=== PATIENT | male | born 1945 | race Caucasian/White ===

== ENCOUNTER 2019-04-25 11:56 | Outpatient (CLI) | payer MEDICARE ==
[~2019-04-25] VITALS: Ht 170.2 cm; Wt 90.9 kg
--- NOTE | ~2019-04-25 | HEMODYNAMI ---
PATIENT:HARI TAFOYA JR MEDICAL RECORD: [id number] : 41 LOCATION:[facility] ADMISSION DATE: 04/25/19 Generatedon:04/25/201916:12 Patient name: HARI TAFOYA Patient #: [id number] SSN: [id number] : 1945 Date of study: 04/25/2019 Page: Of Hemodynamic Procedure Report Patient Data Patient Demographics Procedure consent was obtained First Name: HARI Gender: Male Last Name: MICHELET Suffix: Jr Duvall Initial: MAGAN : 1945 Patient #: [id number] Age: 73 year(s) Race: SSN: [id number] Additional ID: [id number] Contact details [address]: [address] [place] [address] State: [place] City: [place] Zip code: [address] Past Medical History Performed procedures and imaging results Date Procedure Procedure Results Comments 04/19/2019 Stress testing Positive->Intermediate with SPECT MPI risk Allergies Allergen Reaction Date Comments Reported Other allergy 04/25/2019 pollen extracts Admission Admission Data Admission Date: 04/25/2019 Admission Time: 11:56 Arrival Date: 04/25/2019 Arrival Time: 0:00 Admit Source: Other Insurance Payor: Medicare [facility] #: [id number] Height (in.): 66.93 BSA: 2.02 (m2) Height (cm.): 170 BMI: 31.49 (kg/m2) Weight (lbs.): 200.62 Weight (kg.): 91 Lab Results Lab Result Date: 04/25/2019 Lab Result Time: 0:00 Biochemistry Name Units Result Min Max BUN mg/dl 21 --(----)-* 7 18 Creatinine mg/dl 1.1 --(--*-)-- 0.6 1.3 eGFR ml/min 69 *-(----)-- 90 120 NONAFRICAN CBC Name Units Result Min Max Hematocrit % 42.4 --(*---)-- 42 54 Hemoglobin g/dl 14.3 --(*---)-- 13.5 17.5 Procedure Procedure Types Cath Procedure Diagnostic Procedure [facility] w/Coronaries Sedation Charges Moderate Sedation up to 15 minutes Procedure Description Procedure Date Procedure Date: 04/25/2019 Procedure Start Time: 15:58 Procedure End Time: 16:09 Procedure Staff Name Function Bharathi Dowd MD Performing Physician Angel Stauffer RN Nurse Aissatou Spivey RT Monitor Ellen Givens RT Scrub [facility] RT Monitor Indication Abnormal ECG Procedure Data Cath Procedure Fluoroscopy Diagnostic fluoroscopy Total fluoroscopy Time: 2.4 time: 2.4 min min Diagnostic fluoroscopy Total fluoroscopy dose: dose: 323.74 mGy 323.74 mGy Contrast Material Contrast Material Type Amount (ml) Isovue 300 57 Entry Location Entry Primary Successful Side Size Upsize Upsize Entry Closure Lopez ccessful Closure Location (Fr) 1 (Fr) 2 (Fr) Remarks Device Remarks Radial Right 6 Fr Mechanical artery Short Compression Estimated blood loss: 5 ml Diagnostic catheters Device Type Used For End Catheter Placement DIAGNOSTIC Roberto 110cm Procedure 5Fr catheter ([id number]) Procedure Complications No complications Procedure Medications Medication Administration Route Dosage Oxygen etCO2 Nasal cannula 2 l/min Lidocaine 2% added to field 20 Heparin Flush Bag added to field 2 bags (1000units/500ml NS) Radial Cocktail added to field 1 syringe (Verapamil 2mg/Nitro 400mcg/Heparin 1500units) Versed I.V. 2 mg Fentanyl I.V. 50 mcg Versed I.V. 1 mg Fentanyl I.V. 50 mcg Hemodynamics Rest BSA: 2.02 (m2) HGB: 14.3 (g/dl) O2 Consumption: Estimated: 222.5 (ml/min) O2 Con sumption indexed: Estimated:110.15 (ml/min/m) Heart Rate: 57 (bpm) Pressure Samples Time Site Value (mmHg) Purpose Heart Use Rate(bpm) 16:01 LV 122/-6,10 Snapshot 54 Gradients Valve Time Site Site Mean SEP/DFP Peak To Heart Use 1 2 (mmHg) (sec/min) Peak Rate (mmHg) (bpm) Aortic 16:02 LV AO 104 Snapshots Pre Cath Intra NCS Post Cath Vital Signs Time Heart Resp SPO2 etCO2 NIBP (mmHg) Rhythm Pain Sedation Rate (ipm) (%) (mmHg) Status Level (bpm) 15:41:48 62 17 99 0 192/93(175) NSR (Missing) 10(A) 15:46:15 66 23 98 0 172/96(150) NSR (Missing) 10(A) 15:50:37 63 23 95 0 153/81(125) NSR (Missing) 10(A) 15:55:01 55 20 93 0 150/73(131) NSR (Missing) 10(A) 15:59:17 56 16 94 20.1 117/72(103) NSR (Missing) 10(A) 16:03:31 54 20 94 0 111/64(86) NSR (Missing) 10(A) 16:08:36 56 23 98 0 132/71(114) NSR (Missing) 10(A) Medications Time Medication Route Dose Verified Delivered Reason Notes Effectiveness by by 15:39:44 Oxygen etCO2 2 l/min Bharathi Buffie used for Nasal Nile Stauffer RN procedure cannula 15:39:52 Lidocaine 2% added 20ml Bharathi Bharathi for local to vial Nile Dowd MD anesthetic field 15:40:13 Heparin Flush added 2 bags Bharathi Bharathi used for Bag to Nile Dowd MD procedure (1000units/500ml field NS) 15:40:25 Radial Cocktail added 1 Bharathi Bharathi for (Verapamil to syringe Nile Dowd MD vasodilation 2mg/Nitro field 400mcg/Heparin 1500units) 15:56:08 Versed I.V. 2 mg Bharathi Buffie for sedation Nile Stauffer RN 15:56:15 Fentanyl I.V. 50 mcg Bharathi Buffie for sedation Nile Stauffer RN 16:02:19 Versed I.V. 1 mg Bharathi Buffie for sedation Nile Stauffer RN 16:02:23 Fentanyl I.V. 50 mcg Bharathi Buffie for sedation Nile Stauffer RN Procedure Log Time Note 15:02:34 Informed consent obtained and on chart 15:04:14 Diagnostic Cath Status : Elective 15:04:25 Time tracking: Regular hours (M-F 7:00 - 5:00) 15:04:29 Procedure Status Elective Heart Cath (OP). 15:04:31 Admit Source: Other 15:04:51 H&P Date Dictated: 04/04/2019 Within 30 days and on chart.. 15:04:56 Patient NPO since Midnight. 15:05:10 Patient allergic to Other allergypollen extracts 15::53 Aissatou Spivey RT(R) sent for patient. Start room use. 15::38 Lab Result : BUN 21 mg/dl :: Lab Result : Creatinine 1.1 mg/dl :: Lab Result : Hemoglobin 14.3 g/dl :: Lab Result : eGFR NONAFRICAN 69 ml/min :: Lab Result : Hematocrit 42.4 % 15::54 Lab results completed and on chart. 15:30:23 Indication : Abnormal ECG 15::44 Arrival Date: 04/25/2019 12:00:00 AM 15:31:13 Insurance Payor : Medicare 15:31:17 Patient Height : 66.93 inches 15:31:24 Patient Weight : 200.62 lbs 15:32:02 Plan of Care:Hemodynamics will remain stable., Cardiac rhythm will remain stable., Comfort level will be maintained., Respiratory function will remain adequate., Patient/ family verbilizes understanding of procedure., Procedure tolerated without complication., Recovers from procedure without complications.. 15:32:58 ACC Patient presents with Stable Angina CCS Anginal Class 3--Marked limitation of physical activity, angina occurs with ordinary activity.. 15:33:59 Patient received from Pre/Post Procedure Room to [facility] 3 Alert and oriented. Tansferred to table in Supine position. 15:34:02 Warm blankets applied, and zully hugger turned on for patient comfort. 15:34:03 Correct patient and procedure confirmed by team. 15:34:03 ECG and BP/O2 sat monitors applied to patient. 15:36:55 Risk of Mortality: 0.1 15:36:59 Risk of blood transfusion: 0.1 15:37:03 Risk of ANEESH: 0.9 15:39:44 Oxygen 2 l/min etCO2 Nasal cannula was administered by Angel Stauffer RN; used for procedure; Verbal order read back and verified. 15:39:52 Lidocaine 2% 20ml vial added to field was administered by Bharathi Dowd MD; for local anesthetic; Verbal order read back and verified. 15:40:13 Heparin Flush Bag (1000units/500ml NS) 2 bags added to field was administered by Bharathi Dowd MD; used for procedure; Verbal order read back and verified. 15:40:25 Radial Cocktail (Verapamil 2mg/Nitro 400mcg/Heparin 1500units) 1 syringe added to field was administered by Bharathi Dowd MD; for vasodilation; Verbal order read back and verified. 15:40:31 Vital chart was started 15:47:05 Pre-procedure instructions explained to patient. 15:47:06 Pre-op teaching completed and patient verbalized understanding. 15:47:07 Family in patients room. 15:47:12 Is the patient allergic to Iodine/contrast media? No. 15:47:15 Was the patient premedicated? N/A 15:47:17 Is patient on blood thinner?No 15:47:18 Patient diabetic? Yes. 15:47:20 If diabetic: On Metformin? Yes 15:47:22 If on Metformin: Last Dose? 04/22/2019 15:47:32 ----Pre-sedation anethsthesia assessment.---- 15:47:35 Previous problem with sedation/anesthesia? No ? 15:47:36 Snore? Yes 15:47:38 Sleep apnea? No 15:47:40 Deviated septum? No 15:47:41 Opens mouth fully? Yes 15:47:42 Sticks out tongue? Yes 15:47:44 Airway obstruction? No ? 15:47:46 Dentures? No ? 15:47:49 Pre procedure: right dorsailis pedis pulse 2+ Normal; easily identifiable; not easily obliterated 15:47:53 Modified Zen's test Ulnar < 7 seconds 15:47:58 Patient pain scale 0/10 ?. 15:48:15 IV patent on arrival in left antecubital with 0.9% NaCl at KVO. 15:48:36 Stress Test: yes; abnormal INFERIOR 15:48:53 Right Radial & Right Groin area was prepped with chlora-prep and draped in sterile fashion 15:48:54 Alarms reviewed by R. N. 15:48:55 Sharps counted by scrub and verified by R.N. 15:48:59 Use device set Radial Dx or PCI 15:49:00 ACIST Syringe (97595) opened to sterile field. 15:49:01 Medline Cath Pack ([id number]) opened to sterile field. 15:49:01 Bag Decanter () opened to sterile field. 15:49:02 ACIST Hand Control (23816) opened to sterile field. 15:49:02 ACIST Manifold (79310) opened to sterile field. 15:49:10 NEEDLE Cook 21G 4cm Radial ([id number]) opened to sterile field. 15:49:17 EMERALD Guide Wire (502-889) opened to sterile field. 15:49:17 SHEATH 6FR RAIN ([id number]) opened to sterile field. 15:51:10 Rhythm: sinus bradycardia 15:51:12 Full Disclosure recording started 15:51:19 Baseline sample Acquired. 15:53:32 MBrace Wrist Support ([id number]) opened to sterile field. 15:55:32 --------ALL STOP TIME OUT------ 15:55:33 Final Timeout: patient, procedure, and site verified with staff and physician. All members of the team are in agreement. 15:55:38 Right Radial & Right Groin site verified by team. 15:55:41 Fire Safety Assessment: A--An alcohol-based skin anteseptic being used preoperatively., C--Open oxygen or nitrous oxide is being used., D--An ESU, laser, or fiber-optic light is being used. 15:55:44 Physical assessment completed. ASA score P 2 - A patient with mild systemic disease as per Bharathi Dowd MD. 15:55:47 2) 60-89 Mildly reduced kidney function, and other findings (as for stage 1) point to kidney disease. 15:55:49 Maximum allowable contrast dose (3.7 X eGFR X 0.75)191 ml. 15:55:52 Sedation plan: IV Moderate Sedation Medication:Versed, Fentanyl 15:56:08 Versed 2 mg I.V. was administered by Angel Stauffer RN; for sedation; Verbal order read back and verified. 15:56:15 Fentanyl 50 mcg I.V. was administered by Angel Stauffer RN; for sedation; Verbal order read back and verified. 15:58:13 Procedure started. 15:58:28 Local anesthetic to right radial artery with Lidocaine 2% by Bharathi Dowd MD.INITIAL ACCESS ONLY 15:58:33 Zero performed for pressure channel P1 15:59:37 A 6 Fr Short sheath was inserted into the Right Radial artery 15:59:41 Zero performed for pressure channel P1 15:59:45 Zero performed for pressure channel P1 15:59:49 Zero performed for pressure channel P1 15:59:52 Zero performed for pressure channel P1 16:00:21 A DIAGNOSTIC Roberto 110cm 5Fr catheter ([id number]) was advanced over the wire and used for Procedure. 16:01:26 LV gram done using ESCUDERO 16::28 Injector settings: Ml/sec: 5, Volume: 15, 16:01:54 EF : 60 % 16:01:56 LV hemodynamics recorded. 16:02:19 Versed 1 mg I.V. was administered by Angel Stauffer RN; for sedation; Verbal order read back and verified. 16:02:23 Fentanyl 50 mcg I.V. was administered by Angel Stauffer RN; for sedation; Verbal order read back and verified. 16:03:15 LCA angiography performed. 16:04:29 RCA angiography performed. 16:04:56 Catheter removed. 16:05:41 ZEPHYR REGULAR TR BAND ([id number]) opened to sterile field. 16:06:10 Sheath removed intact; hemostasis achieved with Mechanical Compression to the Right Radial artery. 16:06:26 Procedure ended.(Physican Out) 16:06:48 Fluoroscopy time 02.40 minutes. 16:06:57 Fluoroscopy dose: 323.74 mGy 16:06:57 Flurop Dose total: 323.74 16:07:04 Dose Area Product 2556.07 mGy/cm. 16:07:08 Contrast amount:Isovue 300 57ml. 16:07:11 Maximum allowable dose exceeded? No. 16:07:11 Sharps counted by scrub and verified by R.N. 16:07:14 Dunn Loring band inflated with 10cc of air. 16:07:16 Post-procedure physical assessment completed. ASA score P 2 - A patient with mild systemic disease as per Bharathi Dowd MD. 16:07:42 Post procedure rhythm: sinus bradycardia 16:07:45 Estimated blood loss: 5 ml 16:07:46 Post procedure instruction explained to patient.Patient verbalizes understanding. 16:07:47 Patient needs reinforcement of post procedure teaching. 16:08:11 Procedure type changed to Cath procedure, Diagnostic procedure, LHC, LHC w/Coronaries, Sedation Charges, Moderate Sedation up to 15 minutes 16:09:37 Procedure and supply charges have been captured, reviewed, submitted and are correct. 16:09:39 Procedure Complication : No complications 16:09:41 Vital chart was stopped 16:09:42 [facility] Findings: mild to moderate CAD (<70%) 16:09:44 Operative report dictated upon procedure completion. 16:09:45 See physician's report for complete and final results. 16:09:46 Report given to Pre/Post Procedure Room. 16:09:49 Patient transfered to Pre/Post Procedure Room with Bed. 16:09:51 Procedure ended. 16:09:51 Full Disclosure recording stopped 16:09:54 End room use (Document Last) 16:12:12 End room use (Document Last) 16:12:32 End room use (Document Last) Device Usage Item Name Manufacture Quantity Catalog Hospital Part Current Minima l Lot# / Number Charge Number Stock Stock Serial# Code ACIST Acist 1 57391 [id number] 20 Syringe Medical (09558) Systems Inc Medline Medline 1 [id number] 15898 [id number] 5 Cath Pack ([id number]) Bag Microtek 1 2001S 847464 47516 153890 5 Decanter Medical Inc. () ACIST Hand Acist 1 29306 525577 763548 840549 5 Control Medical (26640) Systems Inc ACIST Acist 1 59328 492568 471759 830594 5 Manifold Medical (24269) Systems Inc NEEDLE Cook Cook Medical 1 [id number] [id number] 701206 122716 5 21G 4cm Radial ([id number]) EMERALD Cardinal 1 502-455 562747 065437 582897 5 Guide Wire Health (502-455) SHEATH 6FR Cardinal 1 [id number] 296668 [id number] 766460 5 [facility], Inc ([id number]) MBrace Advanced 1 140-0250-00 725405 97545 211569 5 Wrist Vascular Support Dynamics ([id number]) DIAGNOSTIC Terumo 1 40-7445 486659 316079 423138 5 Roberto 110cm 5Fr catheter (869769) ZEPHYR Cardinal 1 176201 522441 9248476 502049 5 REGULAR TR Health BAND (032697) Signature Audit Friona Stage Time Signature Unsigned Intra-Procedure 04/25/2019 Micaela Fraser 4:12:12 PM RT(R) Intra-Procedure 04/25/2019 Angel Stauffer RN 4:12:32 PM Intra-Procedure 04/25/2019 Bharathi Dowd MD 4:12:50 PM [facility] [address] [place] [address]
[2019-04-25 13:12] VITALS: BP 222/89; Ht 170.2 cm; Wt 90.9 kg
[2019-04-25 13:23] LABS: BASOPHILS 0.2 % (0-2); EOSINOPHILS 2.7 % (0-7); HEMATOCRIT 42.4 % (42.0-54.0); HEMOGLOBIN 14.3 g/dL (13.5-17.5); IMMATURE GRANULOCYTES 0.2 % (0-5); LYMPHOCYTES 31.2 % (15-50); MCH 29.4 pg (26.0-34.0); MCHC 33.7 g/dL (31.0-37.0); MCV 87.1 fL (80.0-100.0); MEAN PLATELET VOLUME 9.2 fL (7.4-10.4); MONOCYTES 8.5 % (2-11); NEUTROPHILS 57.2 % (40-80); PLATELET COUNT 203 10x3/uL (130-400); RBC 4.87 10x6/uL (4.20-6.10); RDW 13.8 % (11.5-14.5)
[2019-04-25 13:36] LABS: ANION GAP 14.4 mmol/L (8-16); CALCIUM 9.3 mg/dL (8.5-10.1); CARBON DIOXIDE 25.1 mmol/L (21.0-32.0); CHOL - HDL RATIO 3.7 ratio (2.3-4.9); CREATININE - SERUM 1.1 mg/dL (0.6-1.3); LDL-HDL RATIO 1.4 ratio (1.5-3.5); POTASSIUM - SERUM 4.5 mmol/L (3.5-5.1)
--- NOTE | 2019-04-25 16:20 | NUR ---
PT RECEIVED BACK TO ROOM 2 FROM [facility]. PT AWAKE, DROWSY. DENIES PAIN OR DISCOMFORT. IV PATENT INFUSING VIA L ARM PER ORDERS. PT PLACED ON CARDIAC MONITORS, HR NSB RATE 54, BP 171/75, RR 14, SAT 97 ON ROOM AIR. ZYPHER BAND AND IMMOBILIZER TO R WRIST, DRESSING CDI NO S/S HEMATOMA. ARM PINK AND WARM, CAP REFILL BRISK. CALL LIGHT IN REACH, AT BS.
--- NOTE | 2019-04-25 16:45 | NUR ---
PT RESTING COMFORTABLY, SANDWICH AND DRINK SERVED. PT DENIES PAIN OR NEEDS AT THIS TIME. VSS. ZBAND IN PLACE NO S/S HEMATOMA. CAP REFILL BRISK.
--- NOTE | 2019-04-25 17:16 | NUR ---
3CC AIR REMOVED FROM Z BAND, NO BLEEDING OR S/S HEMATOMA NOTED. CALL LIGHT IN REACH, VSS.
--- NOTE | 2019-04-25 17:35 | NUR ---
4 ADD'L CC AIR REMOVED FROM Z BAND, NO BLEEDING OR S/S HEMATOMA NOTED. VSS. CALL LIGHT IN REACH. PT DENIES PAIN OR NEEDS AT THIS TIME.
--- NOTE | 2019-04-25 18:00 | NUR ---
ZBAND AND IMMOBILIZER IN PLACE, NO BLLEDING OR SWELLING NOTED. VSS. PT DENIES NEEDS. CALL LIGHT IN REACH
--- NOTE | 2019-04-25 18:24 | NUR ---
DISCHARGE INSTRUCTIONS REVIEWED W PT AND , BOTH VERBALIZED UNDERSTANDING. REMAINING AIR REMOVED FROM Z BAND NO BLEEDING NOTED. IV REMOVED W CATH INTACT, MONITORS REMOVED AND PT UP TO DRESS FOR DISCHARGE.
--- NOTE | 2019-04-25 18:34 | NUR ---
PT AMBULATED TO BR, VOIDING W/O DIFFICULITY. ZBAND REMOVED, NO BLEEDING NOTED. 2X2 AND SM TEGADERM DRESSING APPLIED. PT DISCHARGED VIA WC TO WAITING IN PRIVATE VEHICLE. PT HAD ALL BELONGINGS AND DISCHARGE PAPERWORK.
== END 2019-04-25 18:30 | disposition home or self-care (01) ==
LOC: D.CATH 11:56
PROVIDERS: ATTEND Internal Medicine Cardiovascular Disease
DX: I20.9 Angina pectoris, unspecified (principal); I10 Essential (primary) hypertension